=== PATIENT | female | born 1935 | race Caucasian/White ===

== ENCOUNTER 2023-11-12 00:11 | Emergency (ER) | payer OTHER ==
--- OUTSIDE RECORDS SUMMARY | 2023-11-12 00:14 | XMS REPORT | Continuity of Care Document ---
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 Name Role Phone Samson Garcia Attending Clinician Unavailable Payers Payer Name Policy Type Policy Number Effective Date Expirati on Date Source [facility] AARP MCR Advantage (HMO-POS) [id number] 2023 00:00:00 [facility] Problems Condition Name Condition Details Condition Category Status Onset Date Resolution Date Last Treatment Date Treating Clinician Comments Source [id number] Neuropathy Problem Com [facility] [id number] Elevated blood pressure reading with diagnosis of hypertensi on Problem [facility] [id number] [place] (generaliz ed anxiety disorder) Problem [facility] [id number] Acquired hypothyroi dism Problem [facility] Allergies, Adverse Reactions, Alerts Allergy Name Allergy Type Status Severity Reaction(s) Onset Date Inactive Date Treating Clinician Comments Source amoxicil marky amoxicil marky Active Unknown [facility] [id number] Drug allergy Active Unknown [facility] Social History Social Habit Start Date Stop Date Quantity Comments Source History of Tobacco Use [facility] Sex Assigned At [facility] Smoking Status Start Date Stop Date Source Never Smoker [facility] Former Smoker 2023-08-12 00:00:00 2023-08-12 00:00:00 [facility] Medications Ordered Medication Name Filled Medication Name Start Date Stop Date Current Medication? Ordering Clinician Indication Dosage Frequency Signature (SIG) Comments Components Source Naproxen 500 MG Naproxen 500 MG 10-19 00:00: 00 No QD Naproxen 500 MG Mupirocin 2 % Mupirocin 2 % 10-19 00:00: 00 No 1{appli cation} BID Mupirocin 2 % Meclizine HCl 12.5 MG Meclizine HCl 12.5 MG 10-19 00:00: 00 No 1{table t_as_ne eded} BID Meclizine HCl 12.5 MG HYDROcodone -Acetaminop hen 5-325 MG HYDROcodone -Acetaminop hen 5-325 MG No 1{table t_as_ne eded} QID HYDROcodon e-Acetamin ophen 5-325 MG Gabapentin 300 MG Gabapentin 300 MG No 1{capsu le} BID Gabapentin 300 MG Levothyroxi ne Sodium 75 MCG Levothyroxi ne Sodium 75 MCG No QD Levothyrox ine Sodium 75 MCG Ondansetron 4 MG Ondansetron 4 MG No 1{table t_on_ e_tongu e_and_a llow_to _dissol ve} QD Ondansetro n 4 MG Vital Signs Vital Name Observation Time Observation Value Comments S ource height 2023-10-20 13:40:00 66 [in_i] Commo n [facility] weight 2023-10-20 13:40:00 149.2 [lb_av] Co mmon [facility] temperature 2023-10-20 13:40:00 98.8 [degF] Com mon [facility] bmi 2023-10-20 13:40:00 24.08 kg/m2 Comm on [facility] oximetry 2023-10-20 13:40:00 98 % Commo n [facility] respiratory rate 2023-10-20 13:40:00 16 /min Common [facility] blood pressure systolic 2023-10-20 13:40:00 136 mm[Hg] Common [facility] blood pressure diastolic 2023-10-20 13:40:00 72 mm[Hg] Common [facility] height 2023-10-07 11:20:00 66 [in_i] Commo n [facility] weight 2023-10-07 11:20:00 144.6 [lb_av] Co mmon [facility] temperature 2023-10-07 11:20:00 97.5 [degF] Com mon [facility] bmi 2023-10-07 11:20:00 23.34 kg/m2 Comm on [facility] oximetry 2023-10-07 11:20:00 95 % Commo n [facility] respiratory rate 2023-10-07 11:20:00 16 /min [facility] blood pressure systolic 2023-10-07 11:20:00 133 mm[Hg] Common [facility] blood pressure diastolic 2023-10-07 11:20:00 59 mm[Hg] Common [facility] height 2023-08-12 11:00:00 66 [in_i] Commo n [facility] weight 2023-08-12 11:00:00 139 [lb_av] Comm on [facility] temperature 2023-08-12 11:00:00 97.5 [degF] Com mon [facility] bmi 2023-08-12 11:00:00 22.43 kg/m2 Comm on [facility] oximetry 2023-08-12 11:00:00 97 % Commo n [facility] blood pressure systolic 2023-08-12 11:00:00 156 mm[Hg] Common [facility] blood pressure diastolic 2023-08-12 11:00:00 70 mm[Hg] [facility] Encounters Start Date/Time End Date/Time Encounter Type Admission Type Attending Clinicians Care Facility Care Department Encounter ID Source 2023-11-06 08:25:00 Outpatient Samson Garcia [facility] [id number] [facility] 2023-10-03 14:03:00 Outpatient Samson Garcia [facility] [id number] [facility] 2023-08-12 10:02:01 Outpatient Samson Garcia [facility] [id number] [facility] 2023-10-22 00:00:00 2023-10-22 00:00:00 (TEL) [facility] [id number] [facility] 2023-10-20 00:00:00 2023-10-20 00:00:00 (TEL) [facility] [id number] [facility] 2023-10-20 00:00:00 2023-10-20 00:00:00 OFFICE VISIT ESTAB PT LEVEL 3 [facility] [id number] [facility] 2023-10-07 00:00:00 2023-10-07 00:00:00 OFFICE VISIT ESTAB PT LEVEL 4 [facility] [id number] [facility] 2023-08-25 00:00:00 2023-08-25 00:00:00 (TEL) [facility] [id number] [facility] 2023-08-20 00:00:00 2023-08-20 00:00:00 (TEL) [facility] [id number] [facility] 2023-08-12 00:00:00 2023-08-12 00:00:00 OFFICE VISIT NEW PT LEVEL 4 [facility] [id number] [facility]
[2023-11-12] MEDS ORDERED: NA CHLORIDE 0.9% 1,000 ML ONE (01:37)
[2023-11-12] MEDS ORDERED: MECLIZINE HCL 12.5 MG TAB ONE (01:37)
[2023-11-12] MEDS ORDERED: ONDANSETRON 4 MG/2 ML VIAL ONE (01:37)
[2023-11-12] MEDS ORDERED: BISACODYL 10 MG RECTAL SUPP ONE (01:37)
[2023-11-12] MEDS ORDERED: LACTULOSE 20 GM/30 ML UCUP ONE (01:38)
[2023-11-12 01:48] LABS: PT Prothrombin Time 12.2 SECONDS (9.4-12.5); Protime INR 1.09
[2023-11-12 01:50] LABS: Absolute Basophils 0.1 K/uL (0-0.5); Absolute Eosinophils 0.2 K/uL (0-0.5); Absolute Lymphocytes (CBC) 1.3 K/uL (0.7-4.9); Absolute Monocytes 0.8 K/uL (0.1-1.3); Absolute Neutrophil 5.2 K/uL (1.8-8.0); Eosinophils % 2.1 % (0-4.4); Hematocrit 40.2 % (36.0-45.0); Hemoglobin 13.3 g/dL (12.0-15.0); Lymphocytes % 17.2 % (15.3-44.8); MCH 28.9 pg (27.0-35.0); MCHC 33.1 g/dL (32.0-36.0); MCV 87.4 fL (80-100); MPV 8.4 fL (7.6-11.3); Monocytes % 11.1 % (3.3-12.3); Neutrophils % 68.6 % (41.7-73.7); Platelets 196 thou/uL (152-406); Red Cell Distribution Width 14.5 % (12.1-15.2)
[2023-11-12 02:01] LABS: Albumin 3.4 g/dL (3.4-5.0); Bilirubin Direct 0.2 mg/dL (0-0.2); Bilirubin Indirect, Calculated 0.2 mg/dL (0.2-0.8); Bilirubin Total 0.4 mg/dL (0.2-1.0); Globulin 3.5 g/dL (2.3-3.5); Magnesium 2.2 mg/dL (1.6-2.4); Protein, Total 6.9 g/dL (6.4-8.2); Troponin High Sensitivity 13.1 pg/mL (<58.9)
[2023-11-12 02:01] LABS: Specific Gravity 1.018 (1.005-1.030); Sqamous Epithelial <5 /HPF (None Seen); Urine Bacteria <20 /HPF (<20); Urine Bilirubin NEGATIVE (Negative); Urine Blood 3+ (OVER) (Negative); Urine Clarity Extremely Turbid (Clear); Urine Color Light-Yellow (Yellow); Urine Culture Reflex Order REFLEXED; Urine Glucose NEGATIVE (Negative); Urine Ketones NEGATIVE (Negative); Urine Microscopic Reflex YN ORDER UMIC; Urine Mucus Slight /HPF (None Seen); Urine Nitrite 1+ (Negative); Urine Protein TRACE (Negative); Urine RBC >50 /HPF (None Seen); Urine Urobilinogen Normal (Normal); Urine WBC 20-50 /HPF (<5); Urine Yeast (Budding) Trace /HPF (None Seen)
[2023-11-12] MEDS ORDERED: CEFTRIAXONE 1000 MG/VIAL ONE (05:15)
--- NOTE | 2023-11-12 05:33 | EDPHYS ---
Physician Documentation [facility] Name: Mahogany Valle Age: 88 yrs Sex: Female : 1935 Arrival Date: 11/12/2023 Time: 00:11 Bed 16 Private MD: ED Physician Wilbert Scanlon HPI: 11/11 00:55 This 88 yrs old Female presents to ER via EMS with complaints of Dizziness and cp Constipation. 00:55 The patient presents with dizziness, feeling off balance, sense of spinning. Onset: The cp symptoms/episode began/occurred 3 week(s) ago. Associated signs and symptoms: Pertinent positives: constipation, abdominal distension, Pertinent negatives: chest pain, confusion, diaphoresis, focal weakness, headache, near-syncope, syncope. Severity of symptoms: in the emergency department the symptoms are unchanged despite home interventions. Historical: - Allergies: 00:31 PENICILLINS; al5 - Home Meds: 00:31 Zofran Oral [Active]; Synthroid Oral [Active]; gabapentin oral [Active]; al5 - PMHx: 00:31 vertigo (left hip surgery); Hypothyroidism; al5 - PSHx: 00:31 left hip surgery; al5 - Immunization history:: Adult Immunizations up to date. - Infectious Disease History:: Denies. - Social history:: Smoking status: Patient denies any tobacco usage or history of. ROS: 01:00 Constitutional: Negative for body aches, chills, fever, poor PO intake, cp 01:00 Eyes: Negative for injury, pain, redness, and discharge, cp 01:00 ENT: Negative for drainage from ear(s), ear pain, sore throat, difficulty swallowing, difficulty handling secretions, 01:00 Cardiovascular: Negative for chest pain, edema, palpitations, 01:00 Respiratory: Negative for cough, shortness of breath, wheezing, 01:00 Abdomen/GI: Positive for nausea, constipation, abdominal distension, Negative for black/tarry stool, 01:00 : Negative for urinary symptoms, Exam: 01:05 Constitutional: The patient appears in no acute distress, alert, awake, cp non-diaphoretic, non-toxic, well developed, well nourished, 01:05 Head/Face: Normocephalic, atraumatic. cp 01:05 Eyes: Periorbital structures: appear normal, Pupils: equal, round, and reactive to light and accomodation, Extraocular movements: intact throughout, Conjunctiva: normal, no exudate, no injection, Sclera: no appreciated abnormality, Lids and lashes: appear normal, bilaterally, 01:05 ENT: External ear(s): are unremarkable, Nose: is normal, Mouth: Lips: moist, Oral mucosa: moist, Posterior pharynx: Airway: no evidence of obstruction, patent, 01:05 Neck: ROM/movement: is normal, is supple, without pain, no range of motions limitations, 01:05 Chest/axilla: Inspection: normal, Palpation: is normal, no crepitus, no tenderness, cp 01:05 Cardiovascular: Rate: normal, Rhythm: regular, Edema: ankle edema, that is mild, JVD: is not appreciated, 01:05 Respiratory: the patient does not display signs of respiratory distress, Respirations: cp normal, no use of accessory muscles, no retractions, labored breathing, is not present, Breath sounds: are clear throughout, no decreased breath sounds, no stridor, no wheezing, 01:05 Abdomen/GI: Inspection: distension, that is mild, Bowel sounds: active, all quadrants, Palpation: soft, in all quadrants, moderate abdominal tenderness, in all quadrants, rebound tenderness, is not appreciated, involuntary guarding, is not appreciated, 01:05 Musculoskeletal/extremity: Extremities: noted in the left lower leg and right lower leg: pain, tenderness, mild erythema, mild swelling, 01:05 Neuro: Orientation: to person, place \T\ time. Mentation: is normal, Cerebellar function: Romberg testing is negative, normal finger to nose testing, Motor: moves all fours, no focal deficits, Sensation: no obvious gross deficits, 01:43 ECG was reviewed by the Attending Physician. cp Vital Signs: 00:29 BP 186 / 94; Pulse 69; Resp 16; Temp 97.9; Pulse Ox 97% on R/A; Weight 63.5 kg; Height al5 5 ft. 8 in. ; Pain 3/10; 00:30 BP 175 / 85; Pulse 65; Resp 18; Pulse Ox 94% on R/A; al5 01:00 BP 184 / 78; Pulse 62; Resp 18; Pulse Ox 94% on R/A; al5 01:30 BP 160 / 76; Pulse 67; Resp 18; Pulse Ox 98% on R/A; al5 02:00 BP 178 / 94; Pulse 69; Resp 18; Pulse Ox 98% on R/A; al5 02:30 BP 140 / 98; Pulse 70; Resp 18; Pulse Ox 95% on R/A; al5 03:00 BP 162 / 94; Pulse 63; Resp 18; Pulse Ox 95% on R/A; al5 03:30 BP 174 / 80; Pulse 61; Resp 18; Pulse Ox 98% ; al5 04:00 BP 172 / 84; Pulse 61; Resp 18; Pulse Ox 95% on R/A; al5 00:29 Body Mass Index 21.29 (63.50 kg, 172.72 cm) al5 00:29 Pain Scale: Adult al5 MDM: 00:35 Patient medically screened. cp 05:32 Data reviewed: vital signs, nurses notes, lab test result(s), EKG, radiologic studies, cp CT scan, plain films, ultrasound, and as a result, I will discharge patient. 05:32 Differential diagnosis: cardiac arrhythmia, generalized weakness, GI bleed, cp hypovolemia, idiopathic dizziness, sepsis, vertigo. I considered the following discharge prescriptions or medication management in the emergency department Medications were administered in the Emergency Department. See MAR. Independent interpretation of the following test(s) in the Emergency Department EKG: See my EKG interpretation above. Response to treatment: the patient's symptoms have markedly improved after treatment, and as a result, I will discharge patient. 11/11 00:52 Order name: Basic Metabolic Panel; Complete Time: 02: cp 11/11 02:23 Interpretation: Normal except: CL 110; BUN 20; GFR 68. cp 11/11 00:52 Order name: CBC with Diff; Complete Time: 02: cp 11/11 00:52 Order name: LFT's; Complete Time: 02: cp 11/11 00:52 Order name: Magnesium; Complete Time: 02: cp 11/11 00:52 Order name: NT PRO-BNP; Complete Time: 02: cp 11/11 00:52 Order name: PT-INR; Complete Time: 02: cp 11/11 00:52 Order name: Troponin HS; Complete Time: 02: cp 11/11 00:52 Order name: Urinalysis w/ reflexes; Complete Time: 02:22 cp 11/11 02:23 Interpretation: Normal except: [facility] Extremely Turbid; UBLD 3+ (OVER); UPROT TRACE; UNIT cp 1+; UESTR 250; UWBC 20-50; URBC >50; BYST Trace. 11/11 02:04 Order name: Urine Culture EDMS 11/11 00:52 Order name: XRAY Chest (1 view) cp 11/11 00:52 Order name: CT Abd/Pelvis - PO and IV Contrast: please give oral contrast cp 11/11 00:52 Order name: CT Head Brain wo Cont cp 11/11 02:24 Order name: US Extremity Venous W Compression Max cp 11/11 02:26 Order name: Lower Extremity Arterial Bilateral cp 11/11 00:52 Order name: EKG; Complete Time: 00:53 cp 11/11 00:52 Order name: Cardiac monitoring; Complete Time: 01:51 cp 11/11 00:52 Order name: EKG - Nurse/Tech; Complete Time: 01: cp 11/11 00:52 Order name: IV Saline Lock; Complete Time: 01:51 cp 11/11 00:52 Order name: Labs collected and sent; Complete Time: :51 cp 11/11 00:52 Order name: O2 Per Protocol; Complete Time: 01:10 cp 11/11 00:52 Order name: O2 Sat Monitoring; Complete Time: 01:10 cp EC:43 Rate is 64 beats/min. Rhythm is regular. AL interval is normal. QRS interval is cp prolonged at 134 msec. QT interval is normal. T waves are Inverted in leads aVL, aVR. Interpreted by me. Reviewed by me. Administered Medications: 01:51 Drug: Dulcolax AL Suppository 10 mg AL once Route: AL; al5 03:21 Follow up: Response: No adverse reaction; Other; patient had bowel movement al5 01:51 Drug: NS 0.9% IV 1000 ml IV at 250 ml/hr Per protocol; 1000 mL bolus Route: IV; Rate: al5 250 ml/hr; Site: left forearm; 05:30 Follow up: Response: No adverse reaction; IV Status: Completed infusion; IV Intake: al5 1000ml 01:51 Drug: Ondansetron IVP 4 mg IVP once; over 2 minutes Route: IVP; Site: left forearm; al5 03:22 Follow up: Response: No adverse reaction; Nausea is decreased 5 01:52 Drug: Meclizine PO 25 mg PO once Route: PO; al5 03:22 Follow up: Response: No adverse reaction; Other; dizziness subsided 5 01:52 Drug: Lactulose PO 30 grams 45 ml PO once Volume: 45 ml; Route: PO; al5 03:21 Follow up: Response: No adverse reaction; Other al5 03:22 Follow up: Response: No adverse reaction; Other; patient had bowel movement al5 05:20 Drug: Rocephin IV 1 grams IV at calculated rate once; Given slow IV push per pharmacy al5 instructions Route: IV; Rate: calculated rate; Site: left forearm; :52 Follow up: Response: No adverse reaction; IV Status: Completed infusion; IV Intake: [id number] Disposition: 11/12 01:20 Co-signature as Attending Physician, Wilbert Scanlon MD I agree with the assessment and abiel plan of care. Disposition Summary: 11/12/23 05:32 Discharge Ordered Notes: Location: Home cp Problem: new cp Symptoms: have improved cp Condition: Stable cp Diagnosis - Constipation, unspecified cp - UTI/ Urinary tract infection, site not specified cp - Dizziness and giddiness cp - Pain in left lower leg cp - Pain in right lower leg cp Followup: cp - With: Private Physician - When: 2 - 3 days - Reason: Recheck today's complaints Discharge Instructions: - Discharge Summary Sheet cp - Constipation, Adult cp - Dizziness cp - Musculoskeletal Pain cp - Urinary Tract Infection, Adult cp Forms: - Medication Reconciliation Form cp - Antibiotic Education cp - Prescription Opioid Use cp - Patient Portal Instructions cp - Leadership Thank You Letter cp Prescriptions: - Meclizine 25 mg Oral Tablet - take 1 tablet ORAL route every 8 hours As needed; 30 tablet; Refills: 0, cp Product Selection Permitted - Zofran 4 mg Oral Tablet - take 1 tablet ORAL route every 12 hours As needed; 20 tablet; Refills: 0, cp Product Selection Permitted - Cipro 500 mg Oral Tablet - take 1 tablet ORAL route every 12 hours for 7 days; 14 tablet; Refills: 0, cp Product Selection Permitted Signatures: Dispatcher [employer] Wilbert Farmer MD MD cha Page, Corey, PA PA cp Langhorst, Amanda, RN RN al5 Corrections: (The following items were deleted from the chart) 11/11 00:34 00:31 Allergies: PENICILLINS; al5 00:31 Home Meds: gabapentin oral; al 00:31 PMHx: Hypothyroidism; al5 00:31 PMHx: vertigo (left hip surgery); al5 00:31 PSHx: left hip surgery; al5 al5 00:53 00:53 BASIC METABOLIC PANEL+C.LAB.BRZ ordered. EDMS EDMS 00: 00:53 CBC+H.LAB.BRZ ordered. EDMS EDMS 00: 00:53 HEPATIC FUNCTION+C.LAB.BRZ ordered. EDMS EDMS 00: 00:53 MAGNESIUM+C.LAB.BRZ ordered. EDMS EDMS 00: 00:53 PROBNP+C.LAB.BRZ ordered. EDMS EDMS 00: 00:53 PROTIME (+INR)+COAG.LAB.BRZ ordered. EDMS EDMS 00:53 00:53 Troponin High Sensitivity+C.LAB.BRZ ordered. EDMS EDMS 00:53 00:53 Urinalysis+U.LAB.BRZ ordered. EDMS EDMS 02:26 02:26 Lower Extremity Arterial Bilat+US.RAD.BRZ ordered. EDMS EDMS
--- NOTE | 2023-11-12 05:33 | ER ---
Nurse's Notes [facility] Name: Mahogany Valle Age: 88 yrs Sex: Female : 1935 Arrival Date: 11/12/2023 Time: 00:11 Bed 16 Private MD: Diagnosis: Constipation, unspecified;UTI/ Urinary tract infection, site not specified;Dizziness and giddiness;Pain in left lower leg;Pain in right lower leg Presentation: 11/11 00:29 Chief complaint: EMS states: patient has been complaining of dizziness x1 week, al5 constipation since yesterday, and one episode of vomiting tonight. Coronavirus screen: At this time, the client does not indicate any symptoms associated with coronavirus-19. Ebola Screen: No symptoms or risks identified at this time. Initial Sepsis Screen: Does the patient meet any 2 criteria? No. Patient's initial sepsis screen is negative. Does the patient have a suspected source of infection? No. Patient's initial sepsis screen is negative. Risk Assessment: Do you want to hurt yourself or someone else? Patient reports no desire to harm self or others. Onset of symptoms was November 05, 2023. 00:29 Method Of Arrival: EMS: [facility] al5 00:29 Acuity: RONALD 3 al5 Triage Assessment: 00:34 General: Appears in no apparent distress. Behavior is calm, cooperative. Pain: al5 Complains of pain in right leg and left leg. EENT: No signs and/or symptoms were reported regarding the EENT system. Neuro: Level of Consciousness is awake, alert, obeys commands, Oriented to person, place, time, situation. Cardiovascular: Capillary refill < 3 seconds Patient's skin is warm and dry. Respiratory: Airway is patent Respiratory effort is even, unlabored, Respiratory pattern is regular, symmetrical. GI: Abdomen is flat, non-distended, Last BM was November 10, 2023. Reports constipation, nausea, vomiting. : No signs and/or symptoms were reported regarding the genitourinary system. Derm: Skin is intact, Skin is pink, warm \T\ dry. normal. Musculoskeletal: No signs and/or symptoms reported regarding the musculoskeletal system. Historical: - Allergies: 00:31 PENICILLINS; al5 - Home Meds: 00:31 Zofran Oral [Active]; Synthroid Oral [Active]; gabapentin oral [Active]; al5 - PMHx: 00:31 vertigo (left hip surgery); Hypothyroidism; al5 - PSHx: 00:31 left hip surgery; al5 - Immunization history:: Adult Immunizations up to date. - Infectious Disease History:: Denies. - Social history:: Smoking status: Patient denies any tobacco usage or history of. Screenin:35 [facility] ED Fall Risk Assessment (Adult) History of falling in the last 3 months, al5 including since admission No falls in past 3 months (0 pts) Confusion or Disorientation No (0 pts) Intoxicated or Sedated No (0 pts) Impaired Gait No (0 pts) Mobility Assist Device Used No (0 pt) Altered Elimination No (0 pt) Score/Fall Risk Level 0 - 2 = Low Risk Oriented to surroundings, Maintained a safe environment, Hourly rounding (assess needs \T\ fall precautionary measures) done. Abuse screen: Denies threats or abuse. Denies injuries from another. Nutritional screening: No deficits noted. Tuberculosis screening: No symptoms or risk factors identified. Assessment: 00:35 Reassessment: see triage assessment. al5 01:20 Reassessment: Patient appears in no apparent distress at this time. No changes from al5 previously documented assessment. Patient and/or family updated on plan of care and expected duration. Pain level reassessed. Patient is alert, oriented x 3, equal unlabored respirations, skin warm/dry/pink. 03:24 Reassessment: Patient appears in no apparent distress at this time. Patient and/or al5 family updated on plan of care and expected duration. Pain level reassessed. Patient is alert, oriented x 3, equal unlabored respirations, skin warm/dry/pink. Patient states feeling better. 04:10 Reassessment: Patient appears in no apparent distress at this time. No changes from al5 previously documented assessment. Patient and/or family updated on plan of care and expected duration. Pain level reassessed. Patient is alert, oriented x 3, equal unlabored respirations, skin warm/dry/pink. 05:00 Reassessment: Patient appears in no apparent distress at this time. No changes from al5 previously documented assessment. Patient and/or family updated on plan of care and expected duration. Pain level reassessed. Patient is alert, oriented x 3, equal unlabored respirations, skin warm/dry/pink. 06:06 Reassessment: pending discharge for ride home. al5 Vital Signs: 00:29 BP 186 / 94; Pulse 69; Resp 16; Temp 97.9; Pulse Ox 97% on R/A; Weight 63.5 kg; Height al5 5 ft. 8 in. ; Pain 3/10; 00:30 BP 175 / 85; Pulse 65; Resp 18; Pulse Ox 94% on R/A; al5 01:00 BP 184 / 78; Pulse 62; Resp 18; Pulse Ox 94% on R/A; al5 01:30 BP 160 / 76; Pulse 67; Resp 18; Pulse Ox 98% on R/A; al5 02:00 BP 178 / 94; Pulse 69; Resp 18; Pulse Ox 98% on R/A; al5 02:30 BP 140 / 98; Pulse 70; Resp 18; Pulse Ox 95% on R/A; al5 03:00 BP 162 / 94; Pulse 63; Resp 18; Pulse Ox 95% on R/A; al5 03:30 BP 174 / 80; Pulse 61; Resp 18; Pulse Ox 98% ; al5 04:00 BP 172 / 84; Pulse 61; Resp 18; Pulse Ox 95% on R/A; al5 00:29 Body Mass Index 21.29 (63.50 kg, 172.72 cm) al5 00:29 Pain Scale: Adult al5 ED Course: 00:22 Patient arrived in ED. al5 00:22 Fe Cortez, LG is Primary Nurse. al5 00:31 Triage completed. al5 00:34 Wilbert Steven PA is PHCP. cp 00:35 Wilbert Scanlon MD is Attending Physician. cp 00:36 No provider procedures requiring assistance completed. al5 00:36 Patient has correct armband on for positive identification. Bed in low position. Call al5 light in reach. Side rails up X2. Provided Education on: processes and procedures. 01:09 XRAY Chest (1 view) In Process Unspecified. EDMS 01:32 Inserted saline lock: 22 gauge in left forearm, using aseptic technique. al5 03:31 US Extremity Venous W Compression Max In Process Unspecified. EDMS 03:32 US Lower Extremity Arterial Bilateral In Process Unspecified. EDMS 04:24 CT Abd/Pelvis - PO and IV Contrast: please give oral contrast In Process Unspecified. EDMS 04:24 CT Head Brain wo Cont In Process Unspecified. EDMS 05:50 IV discontinued, intact, bleeding controlled, No redness/swelling at site. Pressure al5 dressing applied. Administered Medications: 01:51 Drug: Dulcolax PA Suppository 10 mg PA once Route: PA; al5 03:21 Follow up: Response: No adverse reaction; Other; patient had bowel movement al5 01:51 Drug: NS 0.9% IV 1000 ml IV at 250 ml/hr Per protocol; 1000 mL bolus Route: IV; Rate: al5 250 ml/hr; Site: left forearm; 05:30 Follow up: Response: No adverse reaction; IV Status: Completed infusion; IV Intake: al5 1000ml 01:51 Drug: Ondansetron IVP 4 mg IVP once; over 2 minutes Route: IVP; Site: left forearm; al5 03:22 Follow up: Response: No adverse reaction; Nausea is decreased al5 01:52 Drug: Meclizine PO 25 mg PO once Route: PO; al5 03:22 Follow up: Response: No adverse reaction; Other; dizziness subsided al5 01:52 Drug: Lactulose PO 30 grams 45 ml PO once Volume: 45 ml; Route: PO; al5 03:21 Follow up: Response: No adverse reaction; Other al5 03:22 Follow up: Response: No adverse reaction; Other; patient had bowel movement al5 05:20 Drug: Rocephin IV 1 grams IV at calculated rate once; Given slow IV push per pharmacy al5 instructions Route: IV; Rate: calculated rate; Site: left forearm; 05:52 Follow up: Response: No adverse reaction; IV Status: Completed infusion; IV Intake: [id number] Medication: 00:36 VIS not applicable for this client. al5 Intake: 05:30 IV: 1000ml; Total: 1000ml. al5 05:52 IV: 10ml; Total: 1010ml. al5 Outcome: 05:32 Discharge ordered by . cp 06:19 Discharged to home via wheelchair, with family, al5 06:19 Condition: good 06:19 Discharge instructions given to patient, Instructed on discharge instructions, follow up and referral plans. medication usage, Demonstrated understanding of instructions, follow-up care, medications, Prescriptions given X 3, 06:19 Patient left the ED. al5 Signatures: Dispatcher [employer] EDMS Wilbert Steven PA PA cp Langhorst, Amanda, RN RN al5 Corrections: (The following items were deleted from the chart) 00:34 00:31 Allergies: PENICILLINS; al5 al5 00:34 00:31 Home Meds: gabapentin oral; al5 al5 : 00:31 PMHx: Hypothyroidism; al5 al5 : 00:31 PMHx: vertigo (left hip surgery); al5 al5 00:34 00:31 PSHx: left hip surgery; al5 al5
[2023-11-12 06:28] VITALS: TEMP 97.9
[2023-11-12 06:51] VITALS: BP 172/84; O2SAT 95
--- NOTE | 2023-11-12 16:55 | EKG ---
Test Date: 2023-11-12 Test Time: 01:35:20 Computational Chemist: YARY MEASUREMENT RESULTS: Intervals: Rate: 64 CT: 184 QRSD: 134 QT: 458 QTc: 472 [place]: P: 81 CT: 184 QRS: -36 T: 108 INTERPRETIVE STATEMENTS: Normal sinus rhythm Left axis deviation Left bundle branch block Abnormal ECG No previous ECG available for comparison Electronically Signed On 11-12-23 16:53:49 CDT by Robin Eckert
--- NOTE | 2023-11-12 19:36 | RAD REPORT ---
EXAM DESCRIPTION: RAD - Chest Single View - 11/12/2023 1:07 am CLINICAL HISTORY: Dizziness. TECHNIQUE: Frontal view of the chest. COMPARISON: No relevant prior studies available. FINDINGS: Lungs: Unremarkable. No consolidation. Pleural space: Unremarkable. No pneumothorax. Heart: Unremarkable. No cardiomegaly. Mediastinum: Unremarkable. Normal mediastinal contour. Bones/joints: Multilevel spondylosis. No acute fracture. Vasculature: Thoracic aortic atherosclerosis. IMPRESSION: No acute disease. Electronically signed by: Desmond Diaz MD 11/12/2023 01:56 AM CDT Due to temporary technical issues with the PACS/Fluency reporting system, reports are being signed by the in house radiologists without review as a courtesy to insure prompt reporting. The interpreting radiologist is fully responsible for the content of the report.
--- NOTE | 2023-11-12 19:40 | RAD REPORT ---
EXAM DESCRIPTION: US - Lower Extremity Arterial Bilat - 11/12/2023 3:30 am CLINICAL HISTORY: 88 years Female, Pain,. COMPARISON: US Lower extremity 11/12/2023 02:35 AM. TECHNIQUE: Grayscale, color Doppler, and spectral Doppler imaging of the bilateral lower extremity a rteries. FINDINGS: Velocities: (All velocities in centimeters per second) Right lower extremity- OXYACETYLENE WELDER: 55 Proximal SFA: 83 Mid SFA: 74 Distal SFA: 86 Popliteal: 75 OUTPATIENT ADMITTING CLERK: 66 DPA: 80 Left lower extremity- OXYACETYLENE WELDER: 92 Proximal SFA: 79 Mid SFA: 97 Distal SFA: There are 2 Popliteal: 81 OUTPATIENT ADMITTING CLERK: 60 DPA: 68 Doppler imaging: Right leg: Atherosclerotic plaque. Multiphasic waveforms visualized throughout the right lower extr emity arteries. Left leg: Atherosclerotic plaque. Multiphasic waveforms identified throughout the left lower extrem ity arteries. IMPRESSION: No evidence of flow-limiting stenosis in the lower extremity arteries by velocity criter ia. Electronically signed by: Giovanny Roberto DO 11/12/2023 04:48 AM CDT 4ZDM Due to temporary technical issues with the PACS/Fluency reporting system, reports are being signed by the in house radiologists without review as a courtesy to insure prompt reporting. The interpreting radiologist is fully responsible for the content of the report.
--- NOTE | 2023-11-12 19:42 | RAD REPORT ---
EXAM DESCRIPTION: US - Extrem Venous W Compress Max - 11/12/2023 3:30 am US Bilateral Lower Extremity Venous Duplex Doppler CLINICAL HISTORY: Pain COMPARISON: None TECHNIQUE: Grayscale, color Doppler, duplex Doppler, spectral Doppler images and analysis with compr ession and augmentation of right and left lower extremity veins. FINDINGS: Right and Left common femoral, greater saphenous, femoral, deep (profunda) femoral, poplit eal, posterior tibial veins unremarkable without evidence of clot. IMPRESSION: No sonographic evidence of right or left lower extremity DVT. Electronically signed by: Mic Barrientos MD 11/12/2023 04:19 AM CDT RP Due to temporary technical issues with the PACS/Fluency reporting system, reports are being signed by the in house radiologists without review as a courtesy to insure prompt reporting. The interpreting radiologist is fully responsible for the content of the report.
--- NOTE | 2023-11-12 19:44 | RAD REPORT ---
EXAM DESCRIPTION: CT - Abdomen Pelvis W Contrast - 11/12/2023 6:36 am CLINICAL HISTORY: Abdominal distention. COMPARISON: None. TECHNIQUE: CT of the abdomen and pelvis performed following IV administration of iodinated contras t.. This exam was performed according to our departmental dose-optimization program, which includes a utomated exposure control, adjustment of the mA and/or kV according to patient size and/or use of ite rative reconstruction technique. FINDINGS: Lung Bases: The visualized lung bases are clear. Bones: Bilateral total hip arthroplasties. Dextroconvex scoliosis of the thoracolumbar spine. Multile nidhi degenerative endplate spondylosis, disc height narrowing, and facet arthropathy. Abdomen: Liver: The liver has normal size and density. Right hepatic cyst. Gallbladder: No calcified gallstones. Spleen, Pancreas, and Adrenal Glands: The spleen, pancreas, and adrenal glands are unremarkable. Kidneys: No hydronephrosis or obstructing calculus. Punctate nonobstructing left nephrolithiasis. Vasculature: Aortoiliac atherosclerosis. IVC is unremarkable. The portal vein is patent. The proxim al visceral and renal arteries are patent. Stomach: Small hiatal hernia. Other: No free intraperitoneal air. No free fluid or lymphadenopathy. Pelvis: Bladder: Urinary bladder is unremarkable. Bowel: No dilated loops of large or small bowel. Scattered diverticula of the colon. Wall thickenin g of the sigmoid colon and rectum. Oral contrast identified in the small bowel and in the colon to th e distal descending colon. Appendix: Normal appendix. Pelvis: Prior hysterectomy. Evaluation of portions of the pelvis is suboptimal due to beam hardening artifact. IMPRESSION: 1. Wall thickening of the sigmoid colon and rectum. These findings could be seen with nonspecific proctocolitis. Follow-up after acute illness recommended. 2. Diverticulosis without evidence of acute diverticulitis. 3. Punctate nonobstructing left nephrolithiasis. 4. Small hiatal hernia. Electronically signed by: Giovanny Roberto DO 11/12/2023 05:14 AM CDT 4ZDM Due to temporary technical issues with the PACS/Fluency reporting system, reports are being signed by the in house radiologists without review as a courtesy to insure prompt reporting. The interpreting radiologist is fully responsible for the content of the report.
--- NOTE | 2023-11-12 19:45 | RAD REPORT ---
EXAM DESCRIPTION: CT - Head Brain Wo Cont - 11/12/2023 6:36 am CLINICAL HISTORY: Dizziness. COMPARISON: CT Head 08/25/2023. TECHNIQUE: Axial CT of the head obtained from the skull apex to the skull base without contrast. Thi s exam was performed according to our departmental dose-optimization program, which includes automate d exposure control, adjustment of the mA and/or kV according to patient size and/or use of iterative reconstruction technique. FINDINGS: No acute intracranial hemorrhage identified. No mass, mass effect, shift of the midline, a bnormal extra-axial fluid collection or CT evidence of acute ischemic change identified. The ventricu lar system and sulcal spaces are mildly enlarged compatible with mild cerebral atrophy. Confluent a reas of hypodensity throughout the supratentorial white matter are nonspecific and may be related to chronic small vessel ischemic change. The visualized paranasal sinuses and the mastoids are clear. No skull fracture identified. Visualiz ed orbits and globes are unremarkable. Atherosclerotic calcification of the intracranial internal car otid arteries. IMPRESSION: 1. No acute intracranial abnormality by CT criteria. Electronically signed by: Giovanny Roberto DO 11/12/2023 04:57 AM CDT RP 4ZDM Due to temporary technical issues with the PACS/Fluency reporting system, reports are being signed by the in house radiologists without review as a courtesy to insure prompt reporting. The interpreting radiologist is fully responsible for the content of the report.
== END 2023-11-12 06:19 | disposition home or self-care (01) ==
LOC: ER 00:11
DX: K59.00 Constipation, unspecified (principal); N39.0 Urinary tract infection, site not specified; R42 Dizziness and giddiness; M79.662 Pain in left lower leg; M79.661 Pain in right lower leg; E03.9 Hypothyroidism, unspecified
CPT/HCPCS: 93005; 87088; 85025; 81001; 87086; 80048; 36415; 83735; 85610; 80076; 84484; 83880; 70450; 74177; 71045; 93925; 93970; Q9967; J8597; J2405; J7030; J0696